=== PATIENT | male | born 1970 | race American Indian/Alaskan Native ===

== ENCOUNTER 2020-10-29 17:13 | Emergency (ER) | payer MEDICAID, OTHER ==
[2020-10-29] MEDS ORDERED: EPINEPHrine 1 MG/ML SDV ONE ×2 (17:22→17:45)
[2020-10-29] MEDS ORDERED: diphenhydrAMINE 50 MG/ML SDV ONE (17:22)
[2020-10-29] MEDS ORDERED: EPINEPHrine 1 MG/ML SDV IM ONE (17:23)
[2020-10-29] MEDS ORDERED: methylPREDNISolone Sodium Succinate 125 MG/2 ML SDV IVPUSH ONE (17:24)
[2020-10-29] MEDS ORDERED: diphenhydrAMINE 50 MG/ML SDV IVPUSH ONE (17:25)
[2020-10-29] MEDS ORDERED: Famotidine 20 MG/2 ML SDV IVPUSH ONE (17:25)
[2020-10-29] MEDS ORDERED: Albuterol 0.083% 2.5 MG/3 ML Neb Soln NEB ONE (17:26)
--- NOTE | 2020-10-29 17:30 | EDM.PDOC ---
<FabiánMichael Aye - Last Filed: 10/29/20 18:24> ED HPI GENERAL MEDICAL PROBLEM - General Chief Complaint: Allergic Reaction Stated Complaint: STUNG BY A BEE, ALLERGIC REACTION, TROUBLE BREATHI Time Seen by Provider: 10/29/20 17:15 Source of Information: Reports: Patient - History of Present Illness INITIAL COMMENTS - FREE TEXT/NARRATIVE: To the emergency department with itching and rash and difficulty breathing and heart pounding after getting stung by bee just prior to arrival. Patient does not know of any prior allergic reactions. He does have asthma. He has gotten stung many years in the past without any similar symptoms. Patient denies any hoarse voice or tongue or lip swelling. Moderate symptoms. Patient has not tried anything to alleviate up to this point - Related Data Allergies Allergy/AdvReac Type Severity Reaction Status Date / Time Penicillins Allergy Other Verified 10/29/20 17:32 Bee Sting Allergy Anaphylactic Uncoded 10/29/20 18:12 Shock Home Meds: Home Meds Gabapentin [Neurontin] 300 mg PO TID 10/29/20 [History] predniSONE [Prednisone] 60 mg PO DAILY #21 tablet 10/29/20 [Rx] ED ROS ALLERGIC REACTION - Review of Systems Review Of Systems: See Below Constitutional: Denies: Fever HEENT: Reports: Other (No lip or tongue swelling) Respiratory: Reports: Shortness of Breath Cardiovascular: Reports: Palpitations. Denies: Chest Pain GI/Abdominal: Denies: Abdominal Pain, Diarrhea, Vomiting Skin: Reports: Rash Neurological: Denies: Confusion Psychiatric: Reports: No Symptoms Immunologic: Reports: Other (Asthma but no prior allergies) ED EXAM GENERAL NO PERIP PULSE - Physical Exam Exam: See Below Text/Narrative:: CONSTITUTIONAL: well appearing in no acute distress SKIN: Warm, dry, and intact without rash HENT: Normocephalic, atraumatic,. No swelling to the lips or tongue. No hoarse voice PULMONARY: Slight bilateral wheeze CARDIOVASCULAR: Tachycardia. No murmurs or rubs or gallops. Strong bounding radial pulse GASTROINTESTINAL: soft, nondistended, nontender NEUROLOGIC: normal speech, motor or sensory function intact MUSCULOSKELETAL: no gross deformities, atraumatic PSYCHIATRIC: normal mood and affect #1 Interpretation Time: 17:33 EKG Interpretation Comments: 124, sinus tachycardia, nonspecific ST-T findings Course - Vital Signs Text/Narrative:: Differential diagnosis: Sepsis, anaphylaxis, angioedema, cardiac, other Patient presents after bee sting and exhibiting signs of anaphylaxis. Throughout his ED course at one point O2 saturation 88% with very tight wheezing. Albuterol was given on top of IM epinephrine. A second dose of IM epinephrine was also given. Patient with significant tachycardia and at one point mildly hypotensive with systolic blood pressure of 97 exhibiting signs of anaphylaxis. 1-1/2 L of fluid were given with improvement of blood pressure. At this time patient is declining hospitalization. I am concerned that this could be dangerous or life-threatening. He has agreed at this point to at least be watched and treated for several more hours. My hope would be that the patient can be convinced to stay instead of leaving AGAINST MEDICAL ADVICE. There is still objective wheezing although the patient is improved patient is still exhibiting signs of severe allergic reaction. MINDY Babin 7pm Departure - Departure Disposition: Home, Self-Care 01 Clinical Impression: Anaphylaxis - Discharge Information Prescriptions: predniSONE [Prednisone] 60 mg PO DAILY #21 tablet Instructions: Anaphylactic Reaction, Adult, [id number] Referrals: PCP,None [Primary Care Provider] - Forms: ED Department Discharge Additional Instructions: Take Benadryl 3 times a day for 3 days. Fill the prescription. The EpiPen is quite expensive and if you are someone with a computer and Internet access can explore their [employer] to try to deal with this problem. Look for affordable epinephrine pen. [facility] - Primary Care [address] [place] [address] [place] [address] The following information is given to patients seen in the emergency department who are being discharged to home. This information is to outline your options for follow-up care. We provide all patients seen in our emergency department with a follow-up referral. The need for follow-up, as well as the timing and circumstances, are variable depending upon the specifics of your emergency department visit. If you don't have a primary care physician on staff, we will provide you with a referral. We always advise you to contact your personal physician following an emergency department visit to inform them of the circumstance of the visit and for follow-up with them and/or the need for any referrals to a consulting specialist. The emergency department will also refer you to a specialist when appropriate. This referral assures that you have the opportunity for follow-up care with a specialist. All of these measure are taken in an effort to provide you with optimal care, which includes your follow-up. Under all circumstances we always encourage you to contact your private physician who remains a resource for coordinating your care. When calling for follow-up care, please make the office aware that this follow-up is from your recent emergency room visit. If for any reason you are refused follow-up, please contact the Emergency Department at and asked to speak to the emergency department charge nurse. <Ameya Babin - Last Filed: 10/29/20 20:34> Course - Vital Signs Text/Narrative:: 2002 this patient is comfortable and has scattered wheeze with slightly diminished breath sounds. He does not have any Stender for his inhaler at home. Will be instructed on how to use a spacer and to get an EpiPen. Patient will be discharged after ample observation. 2032 patient tolerates activity. He is walking around without wheeze. He will try to contact [employer] get up with EpiPen. Discharged in satisfactory condition. Last Recorded V/S: Last Vital Signs Temp 36.8 C 10/29/20 17:13 Pulse 95 10/29/20 20:00 Resp 18 10/29/20 20:00 BP 102/51 L 10/29/20 20:00 Pulse Ox 95 10/29/20 20:00 - Orders/Labs/Meds Orders: Active Orders 24 hr Category Date Time Status RT Aerosol Therapy [RC] ASDIRECTED Care 10/29/20 17:26 Active RT Aerosol Therapy [RC] ASDIRECTED Care 10/29/20 20:05 Active B-TYPE NATRIURETIC PEPTIDE,BNP [CHEM] Stat Lab 10/29/20 19:34 Received COMPREHENSIVE METABOLIC PN,CMP [CHEM] Stat Lab 10/29/20 19:34 Received CORONAVIRUS COVID-19 ROSE MARY [MOLEC] Stat Lab 10/29/20 17:36 Ordered TROPONIN I [CHEM] Stat Lab 10/29/20 19:34 Received Lactated Ringers [Ringers, Lactated] 1,000 ml Med 10/29/20 18:15 Active IV ASDIRECTED Sodium Chloride 0.9% [Saline Flush] Med 10/29/20 17:36 Active 10 ml FLUSH ASDIRECTED PRN Sodium Chloride 0.9% [Saline Flush] Med 10/29/20 17:36 Active 2.5 ml FLUSH ASDIRECTED PRN Saline Lock Insert [OM.PC] Stat Oth 10/29/20 17:36 Ordered Medication Orders Lactated Ringer's (Ringers, Lactated) 1,000 mls @ 999 mls/hr IV ASDIRECTED JEOVANY Last Admin: 10/29/20 18:11 Dose: 999 mls/hr Documented by: JOHN Sodium Chloride (Sodium Chloride 0.9% 10 Ml Syringe) 10 ml FLUSH ASDIRECTED PRN PRN Reason: Keep Vein Open Last Admin: 10/29/20 17:42 Dose: 10 ml Documented by: JOHN Sodium Chloride (Sodium Chloride 0.9% 2.5 Ml Syringe) 2.5 ml FLUSH ASDIRECTED PRN PRN Reason: Keep Vein Open Last Admin: 10/29/20 17:42 Dose: 2.5 ml Documented by: JOHN Labs: Laboratory Tests 10/29/20 Range/Units 19:34 WBC 7.11 (4.0-11.0) K/uL RBC 4.42 L (4.50-5.90) M/uL Hgb 14.3 (13.0-17.0) g/dL Hct 41.6 (38.0-50.0) % MCV 94.1 (80.0-98.0) fL MCH 32.4 H (27.0-32.0) pg MCHC 34.4 (31.0-37.0) g/dL RDW Std Deviation 46.1 (28.0-62.0) fl RDW Coeff of Ashely 13 (11.0-15.0) % Plt Count 132 L (150-400) K/uL MPV 9.70 (7.40-12.00) fL Neut % (Auto) 83.8 H (48.0-80.0) % Lymph % (Auto) 11.4 L (16.0-40.0) % Placer % (Auto) 4.6 (0.0-15.0) % Eos % (Auto) 0.1 (0.0-7.0) % Baso % (Auto) 0.1 (0.0-1.5) % Neut # (Auto) 6.0 H (1.4-5.7) K/uL Lymph # (Auto) 0.8 (0.6-2.4) K/uL Placer # (Auto) 0.3 (0.0-0.8) K/uL Eos # (Auto) 0.0 (0.0-0.7) K/uL Baso # (Auto) 0.0 (0.0-0.1) K/uL Nucleated RBC % 0.0 /100WBC Nucleated RBCs # 0 K/uL Meds: Medications Generic Name Dose Route Start Last Admin Trade Name Freq PRN Reason Stop Dose Admin Lactated Ringer's 1,000 mls @ 999 mls/hr 10/29/20 18:15 10/29/20 18:11 Ringers, Lactated IV 999 mls/hr ASDIRECTED JEOVANY Administration Sodium Chloride 10 ml 10/29/20 17:36 10/29/20 17:42 Sodium Chloride 0.9% 10 Ml Syringe FLUSH 10 ml ASDIRECTED PRN Administration Keep Vein Open Sodium Chloride 2.5 ml 10/29/20 17:36 10/29/20 17:42 Sodium Chloride 0.9% 2.5 Ml Syringe FLUSH 2.5 ml ASDIRECTED PRN Administration Keep Vein Open Discontinued Medications Generic Name Dose Route Start Last Admin Trade Name Freq PRN Reason Stop Dose Admin Albuterol 2.5 mg 10/29/20 17:26 10/29/20 17:56 Albuterol 0.083% 2.5 Mg/3 Ml Neb Soln NEB 10/29/20 17:27 2.5 mg ONETIME ONE Administration Albuterol/Ipratropium 3 ml 10/29/20 20:05 10/29/20 20:21 Albuterol/Ipratropium 3.0-0.5 Mg/3 Ml Neb Soln NEB 10/29/20 20:06 3 ml ONETIME ONE Administration Diphenhydramine HCl Confirm 10/29/20 17:22 10/29/20 17:32 Diphenhydramine 50 Mg/Ml Sdv Administered 10/29/20 17:23 Not Given Dose 50 mg .ROUTE .STK-MED ONE Diphenhydramine HCl 50 mg 10/29/20 17:25 10/29/20 17:38 Diphenhydramine 50 Mg/Ml Sdv IVPUSH 10/29/20 17:26 50 mg ONETIME ONE Administration Epinephrine HCl Confirm 10/29/20 17:22 10/29/20 17:32 Epinephrine 1 Mg/Ml Sdv Administered 10/29/20 17:23 Not Given Dose 1 mg .ROUTE .STK-MED ONE Epinephrine HCl 0.4 mg 10/29/20 17:23 10/29/20 18:06 Epinephrine 1 Mg/Ml Sdv IM 10/29/20 17:24 Not Given ONETIME ONE Epinephrine HCl 0.4 mg 10/29/20 17:40 10/29/20 17:41 Epinephrine 1 Mg/1 Ml Amp IM 10/29/20 17:41 0.4 mg ONETIME ONE Administration Epinephrine HCl Confirm 10/29/20 17:45 10/29/20 17:59 Epinephrine 1 Mg/Ml Sdv Administered 10/29/20 17:46 Not Given Dose 1 mg .ROUTE .STK-MED ONE Epinephrine HCl 0.4 mg 10/29/20 17:58 10/29/20 18:03 Epinephrine 1 Mg/1 Ml Amp IM 10/29/20 17:59 0.4 mg ONETIME ONE Administration Famotidine 20 mg 10/29/20 17:25 10/29/20 17:38 Famotidine 20 Mg/2 Ml Sdv IVPUSH 10/29/20 17:26 20 mg ONETIME ONE Administration Lactated Ringer's 1,000 mls @ 999 mls/hr 10/29/20 17:26 10/29/20 18:09 Ringers, Lactated IV 10/29/20 18:26 Infused .BOLUS ONE Infusion Methylprednisolone Sodium Succinate 125 mg 10/29/20 17:24 10/29/20 17:39 Methylprednisolone Sodium Succinate 125 Mg/2 Ml Sdv IVPUSH 10/29/20 17:25 125 mg ONETIME ONE Administration Departure - Departure Time of Disposition: 20:34 Condition: Good Sepsis Event Note (ED) - Focused Exam Vital Signs: Vital Signs Temp Pulse Resp BP Pulse Ox 10/29/20 20:00 95 18 102/51 L 95 10/29/20 18:54 104 H 102/43 L 100 10/29/20 18:44 103 H 103/48 L 100 10/29/20 18:34 105 H 110/47 L 100 10/29/20 18:24 110 H 121/49 L 100 10/29/20 18:14 109 H 121/54 L 97 10/29/20 18:04 107 H 109/46 L 95 10/29/20 17:58 106 H 116/54 L 95 10/29/20 17:54 106 H 118/56 L 97 10/29/20 17:47 104 H 135/61 96 10/29/20 17:24 113 H 116/70 95 10/29/20 17:13 36.8 C 119 H 22 H 116/71 91 L - My Orders Last 24 Hours: My Active Orders 10/29/20 20:05 RT Aerosol Therapy [RC] ASDIRECTED - Assessment/Plan Last 24 Hours: My Active Orders 10/29/20 20:05 RT Aerosol Therapy [RC] ASDIRECTED
[2020-10-29] MEDS ORDERED: Sodium Chloride 0.9% 2.5 ML Syringe FLUSH PRN (17:36)
[2020-10-29] MEDS ORDERED: Sodium Chloride 0.9% 10 ML Syringe FLUSH PRN (17:36)
[2020-10-29] MEDS: Lactated Ringers 1,000 ML IV ONE ×2 (17:38→18:09)
[2020-10-29] MEDS ORDERED: EPINEPHrine 1 MG/1 ML Amp IM ONE ×2 (17:40→17:58)
[2020-10-29] MEDS ORDERED: Lactated Ringers 1,000 ML IV SCH (18:15)
[2020-10-29] MEDS ORDERED: Albuterol/Ipratropium 3.0-0.5 MG/3 ML Neb Soln NEB ONE (20:05)
[2020-10-29 20:23] LABS: BLOOD UREA NITROGEN,BUN 12 mg/dL (7.0-18.0); CARBON DIOXIDE,CO2 19.3 mmol/L (21.0-32.0); CHLORIDE,CL 105 mmol/L (98-107); GLUCOSE RANDOM 154 mg/dL (74-106); POTASSIUM,K 3.3 mmol/L (3.5-5.1); SODIUM,NA 139 mmol/L (136-148)
== END 2020-10-29 20:38 | disposition home or self-care (01) ==
LOC: MW.ED 17:13
DX: T78.2XXA Anaphylactic shock, unspecified, initial encounter (principal); Z91.030 Bee allergy status; Z88.0 Allergy status to penicillin
CPT/HCPCS: 36415; 80053; 83880; 84484; 85025; 93005; 96372; 96374; 96375; 99285; J0171; J1200; J2930; J3490; J7120; J7620-GY